=== PATIENT | female | born 1965 | race African-American/Black ===

== ENCOUNTER 2020-12-27 10:46 | Emergency (ER) | payer SELFPAY ==
[~2020-12-27] VITALS: Ht 152.4 cm; Wt 79.4 kg
[2020-12-27 12:21] VITALS: BP 137/70
== END 2020-12-27 13:24 | disposition home or self-care (01) ==
LOC: ER 10:46
DX: M17.12 Unilateral primary osteoarthritis, left knee (principal)
CPT/HCPCS: 29505; 73562

== ENCOUNTER 2021-07-17 09:08 | Emergency (ER) | payer MEDICAID ==
[~2021-07-17] VITALS: Ht 149.9 cm; Wt 97.1 kg
[~2021-07-17 09:08] MED LIST: IBUP800T27 PO; TAM04C PO
[2021-07-17 10:14] VITALS: BP 137/81
== END 2021-07-17 12:26 | disposition home or self-care (01) ==
LOC: ER 09:08
DX: M17.11 Unilateral primary osteoarthritis, right knee (principal); M17.12 Unilateral primary osteoarthritis, left knee; G89.29 Other chronic pain; F17.210 Nicotine dependence, cigarettes, uncomplicated; Z79.1 Long term (current) use of non-steroidal anti-inflammatories (NSAID); Z79.899 Other long term (current) drug therapy
CPT/HCPCS: 73562

== ENCOUNTER 2022-05-07 10:25 | Emergency (ER) | payer MEDICAID ==
[~2022-05-07] VITALS: Ht 149.9 cm; Wt 90.9 kg
[2022-05-07 11:00] LABS: Basophils # (auto) 0.1 10 ^3/uL (0-0.2); Basophils % (auto) 1.2 % (0.0-2.0); Eosinophils # (auto) 0.1 10 ^3/uL (0-0.8); Eosinophils % (auto) 1.1 % (0.0-7.0); Hematocrit 45.3 % (36.0-46.0); Hemoglobin 14.3 g/dL (12.2-16.2); Lymphocytes # (auto) 2.4 10 ^3/uL (0.4-5.4); Lymphocytes % (auto) 33.7 % (10.0-50.0); Mean Corpuscular Hgb Conc. 31.6 g/dL (32.0-36.0); Mean Corpuscular Volume 88.7 fL (80.0-100.0); Monocytes # (auto) 0.6 10 ^3/uL (0-1.3); Monocytes % (auto) 8.4 % (0.0-12.0); Neutrophils % (auto) 55.6 % (37.0-80.0); Nucleated Red Blood Cells % 0.2 %; Red Blood Cells 5.11 10^6/uL (4.0-5.20); Red Cell Distribution Width 14.6 % (11.8-14.3); White Blood Cell 7.2 10^3/uL (4.4-10.8)
[2022-05-07 11:17] LABS: Albumin 3.8 g/dL (3.4-5.0); Calcium 9.3 mg/dL (8.5-10.1); Magnesium 2.2 mg/dL (1.6-2.6); Potassium 4.1 mmol/L (3.5-5.1)
[2022-05-07 11:21] LABS: BUN/Creatinine Ratio 8.5; Bilirubin, Total 0.3 mg/dL (0.2-1.0); Total Protein 8.1 g/dL (6.4-8.2)
[2022-05-07 12:52] LABS: Urine Bacteria FEW /hpf (None Seen); Urine Blood Negative /uL (Negative); Urine Mucus FEW (None Seen); Urine Specific Gravity 1.014 (1.001-1.035); Urine WBC 7 /hpf (0 - 5)
[2022-05-07] MEDS ORDERED: CIPR-173 PO (13:47)
[2022-05-07 14:29] VITALS: BP 145/92
== END 2022-05-07 14:32 | disposition home or self-care (01) ==
LOC: ER 10:25
DX: R07.89 Other chest pain (principal); N39.0 Urinary tract infection, site not specified; F17.210 Nicotine dependence, cigarettes, uncomplicated; F12.90 Cannabis use, unspecified, uncomplicated; Z79.899 Other long term (current) drug therapy; Z98.890 Other specified postprocedural states
CPT/HCPCS: 36415; 71045; 80053; 81001; 83735; 83880; 84484; 85025; 93005

== ENCOUNTER 2023-06-14 23:07 | Emergency (ER) | payer MEDICARE, MEDICAID ==
[~2023-06-14] VITALS: Ht 152.4 cm; Wt 101.5 kg
[~2023-06-14 23:07] MED LIST changes: +CIPR-173 PO; +IBUP-1456 PO; -IBUP800T27 PO; -TAM04C PO; +TAMS-35 PO
[2023-06-14 23:51] LABS: Urine Bacteria NONE SEEN /hpf (None Seen); Urine Blood Negative /uL (Negative); Urine Clarity HAZY (Clear); Urine Color Yellow (Yellow); Urine Mucus FEW (None Seen); Urine Protein, UAD TRACE (Negative); Urine Specific Gravity 1.028 (1.001-1.035); Urine WBC 9 /hpf (0 - 5)
[2023-06-15] MEDS: KETOROLAC TROMETH 60MG/2ML VIAL IM ONE (00:13)
[2023-06-15] MEDS: HYDROcodone-ACET 10/325MG TAB PO ONE (00:14)
[2023-06-15] MEDS: NITROFURANTOIN 100 mg CAP PO ONE (00:14)
[2023-06-15] MEDS ORDERED: NITR-87 PO (01:03)
[2023-06-15] MEDS ORDERED: ACE3T PO (01:03)
[2023-06-15] MEDS ORDERED: ZOFR4T PO (01:03)
[2023-06-15] MEDS ORDERED: IBUP-1455 PO (01:03)
[2023-06-15 04:00] VITALS: PULSE 65; RESP 20; O2SAT 96
[2023-06-15 07:44] VITALS: PULSE 60; RESP 16; O2SAT 99
[2023-06-15 09:32] VITALS: BP 130/80; PULSE 80; RESP 18; TEMP 98.9; O2SAT 98
== END 2023-06-15 09:33 | disposition home or self-care (01) ==
LOC: ER 23:07
DX: N39.0 Urinary tract infection, site not specified (principal); F17.210 Nicotine dependence, cigarettes, uncomplicated; F12.10 Cannabis abuse, uncomplicated; Z87.442 Personal history of urinary calculi
CPT/HCPCS: 74176; 81001; 96372; 99285; J1885

== ENCOUNTER 2023-09-05 08:12 | Emergency (ER) | payer MEDICARE, MEDICAID ==
[~2023-09-05] VITALS: Ht 152.4 cm; Wt 102.0 kg
[~2023-09-05 08:12] MED LIST changes: +ACE3T PO; +IBUP-1455 PO; +NITR-87 PO; +ZOFR4T PO
[2023-09-05 08:42] LABS: Urine Bacteria FEW /hpf (None Seen); Urine Blood Negative /uL (Negative); Urine Clarity Turbid (Clear); Urine Color Yellow (Yellow); Urine Mucus FEW (None Seen); Urine Protein, UAD 1+ (Negative); Urine Specific Gravity 1.024 (1.001-1.035); Urine Urobilinogen Normal (Negative); Urine WBC 16 /hpf (0 - 5)
[2023-09-05 09:12] VITALS: BP 144/92; PULSE 76; RESP 18; TEMP 97.9; O2SAT 98
[2023-09-05] MEDS: KETOROLAC TROMETH 60MG/2ML VIAL IM ONE (09:40)
[2023-09-05] MEDS ORDERED: TRAM-626 PO (09:58)
[2023-09-05] MEDS ORDERED: BACDST PO (09:58)
== END 2023-09-05 10:03 | disposition home or self-care (01) ==
LOC: ER 08:12
DX: M54.41 Lumbago with sciatica, right side (principal); N30.00 Acute cystitis without hematuria; F17.210 Nicotine dependence, cigarettes, uncomplicated; F12.10 Cannabis abuse, uncomplicated
CPT/HCPCS: 81001; 96372; 99283; J1885